=== PATIENT | male | born 1980 | race Caucasian/White ===

== ENCOUNTER 2016-05-17 09:37 | Emergency (ER) | payer BC, OTHER ==
[2016-05-17 09:45] VITALS: BP 161/98
[2016-05-17] MEDS ORDERED: MECLIZINE HCL 25 MG TABLET PO ONE (10:00)
--- NOTE | 2016-05-17 10:12 | ERNOTE ---
Dizziness ER Record Date of Service: 05/17/16 Time Seen by Provider: 05/17/16 09:54 Source: patient Exam Limitations: no limitations Allergies/Adverse Reactions: Allergies Allergy/AdvReac Type Severity Reaction Status Date / Time No Known Allergies Allergy Verified 05/17/16 09:45 Home Medications: HOME MEDICATIONS Meclizine HCl 25 mg PO QID PRN #20 tab.chew 05/17/16 [Last Taken Unknown] - History of Present Illness Narrative: Pt. comes in with dizziness that started after he was bent over changing a tire three days ago. Pt. stated that he rested for the three days following this and noted that he had a swaying feeling when sitting since. Pt. denies any change in his gait, NVD, recent illness, or fevers. Review of Systems - Review of Systems Constitutional: Present: no symptoms reported. Absent: recent illness, fever, chills, weakness, fatigue, malaise EYE: Present: no symptoms reported ENT: Present: no symptoms reported, other - R ear fullness Respiratory: Present: no symptoms reported. Absent: shortness of breath, cough , wheezing Cardiology: Present: no symptoms reported. Absent: chest pain, palpitations, edema Gastrointestinal/Abdominal: Present: no symptoms reported. Absent: nausea, vomiting, diarrhea Genitourinary: Present: no symptoms reported Musculoskeletal: Present: no symptoms reported. Absent: back pain, joint pain Skin: Present: no symptoms reported Neurological: Present: dizziness/light-headedness. Absent: headache, numbness, tingling All Other Systems: All systems neg except as marked - Patient's Past Medical History Patient History - Medical: No pertinent hx Patient History - Cancer: No Hx of Cancer Patient History - Surgical Procedures: No surgical history - Social History Smoking Status: Never smoker Have you smoked in the past 12 months: No Physical Exam - Physical Exam General Appearance: Present: wd/wn, alert, no apparent distress Eye Exam: Normal inspection: bilateral, PERRL: bilateral, EOMI: bilateral Ears, Nose, Throat: Present: normal ENT inspection, hearing grossly normal, normal pharynx Neck: Present: normal inspection, nontender. Absent: lymphadenopathy (R), lymphadenopathy (L) Respiratory: Present: no respiratory distress, normal breath sounds, no accessory muscle use, chest nontender, lungs clear Cardiovascular/Chest: Present: regular rate, rhythm, no murmur, normal peripheral pulses Gastrointestinal/Abdominal: Present: normal bowel sounds, nontender, nondistended, soft, no organomegaly Back Exam: Present: normal inspection, normal range of motion, no CVA tenderness , no vertebral tenderness Extremity Exam: Present: normal inspection, non-tender, no edema, normal range of motion Neurological Exam: Present: alert, oriented, normal mood/affect, no motor/ sensory deficits, feed mixer II-XII nml as tested, normal cerebellar test, other - no nystagmus noted on miguel enciso pike but pt did state it made him slightly dizzy Skin Exam: Present: normal color, warm/dry. Absent: pallor, skin rash ED Progress - Results and Orders Patient's Lab Results:: I have reviewed the patient's lab results. - Vital Signs Patient's Vital Signs:: I have reviewed the patient's vital signs. Vital Signs: Vital Signs 05/17/16 09:42 Temperature 36.6 C Pulse Rate 87 Respiratory 14 Rate Blood Pressure 161/98 O2 Sat by Pulse 99 Oximetry - Progress/Reassessment Chief Complaint: Dizziness Progress:: Improved Departure Clinical Impression: Vertigo - Departure Disposition: Home self-care Condition: Good Instructions: Vertigo, [id number] Additional Instructions: Please follow up with primary provider if not improving in 2-3 days. Prescriptions: Meclizine HCl 25 mg PO QID PRN #20 tab.chew PRN Reason: dizziness
[2016-05-17] MEDS ORDERED: MECLIZINE HCL 25 MG TABLET ONE (10:21)
[2016-05-17 10:28] LABS: Hemoglobin 15.1 gm/dL (13.5-18.0); Mean Corpuscular Hemoglobin 29.2 pg (27-31); Mean Corpuscular Hgb Conc 33.6 g/dl (32-36); Mean Platelet Volume 8.4 fl (6.0-9.5); Neutrophil # 3.4 K/mm3 (1.3-6.0); Neutrophil % 59.1 % (42-75.0); Platelet Count 218 K/mm3 (150-450); Red Blood Count 5.17 M/mm3 (4.7-6.0); Red Cell Distribution Width 11.9 % (11.5-14.0); White Blood Count 5.7 K/mm3 (4.0-10.5)
[2016-05-17 10:42] LABS: Albumin * 4.1 gm/dl (3.4-5.0); Anion Gap 11.3 mmol/L (6.8-13.8); BUN/Creatinine Ratio 13.7 (9.0-21.6); Bilirubin, Total 0.4 mg/dL (0.0-1.1); Ca. Corrected For Albumin 8.5 mg/dL (8.4-10.2); Calcium * 8.9 mg/dL (7.9-10.9); Carbon Dioxide 29.8 mmol/L (24-32.6); Potassium 4.1 mmol/L (3.4-4.6); Total Protein 7.5 gm/dL (6.2-8.2)
== END 2016-05-17 11:35 | disposition home or self-care (01) ==
LOC: ER 09:37
DX: R42 Dizziness and giddiness (principal)